=== PATIENT | male | born 1990 | race Caucasian/White ===

== ENCOUNTER 2023-02-05 13:01 | Emergency (ER) | payer OTHER, BC ==
[~2023-02-05] VITALS: Ht 170.2 cm; Wt 83.9 kg
[2023-02-05 13:07] VITALS: BP_SYST 136; PULSE 88; RESP 16; TEMP 97.7; O2SAT 100
[2023-02-05 13:44] VITALS: TEMP 97.4
[2023-02-05] MEDS ORDERED: carisoprodoL 350 MG TABLET PO ONE (14:30)
[2023-02-05] MEDS ORDERED: KETOROLAC TROMETHAMINE 60 MG/2 ML VIAL IM ONE (14:30)
[2023-02-05] MEDS ORDERED: SOM350 PO (15:04)
[2023-02-05] MEDS ORDERED: TRAM50TA2 PO (15:04)
[2023-02-05 15:41] VITALS: BP_SYST 121; PULSE 98; RESP 17; O2SAT 99
== END 2023-02-05 15:21 | disposition home or self-care (01) ==
LOC: SED 13:01
DX: S16.1XXA Strain of muscle, fascia and tendon at neck level, initial encounter (principal); S29.011A Strain of muscle and tendon of front wall of thorax, initial encounter; Z79.899 Other long term (current) drug therapy; V49.40XA Driver injured in collision with unspecified motor vehicles in traffic accident, initial encounter; Y93.89 Activity, other specified; Y92.89 Other specified places as the place of occurrence of the external cause; Y99.8 Other external cause status
CPT/HCPCS: 99285; 70450; 72125; 76376; 96372; J1885